=== PATIENT | male | born 1990 | race Caucasian/White ===

== ENCOUNTER 2020-04-04 13:46 | Emergency (ER) | payer OTHER ==
[2020-04-04 13:55] VITALS: BP 120/73; PULSE 94; TEMP 98.8; BMI 24.3
== END 2020-04-04 14:30 | disposition home or self-care (01) ==
LOC: JCOVINFU 13:46
DX: G47.00 Insomnia, unspecified (principal); U07.1 COVID-19
CPT/HCPCS: 99281-25